=== PATIENT | female | born 1975 | race American Indian/Alaskan Native ===

== ENCOUNTER 2022-03-18 09:41 | Emergency (ER) | payer OTHER ==
[2022-03-18] MEDS ORDERED: HYDROcodone/ACETAMINOPHEN 5-325 MG TAB PO ONE (10:42)
[2022-03-18] MEDS ORDERED: IBUPROFEN 800 MG TAB PO ONE (10:42)
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
[2022-03-18 10:49] VITALS: BP 120/80
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
== END 2022-03-18 13:45 | disposition home or self-care (01) ==
LOC: ED 09:41
DX: S10.91XA Abrasion of unspecified part of neck, initial encounter (principal); S60.512A Abrasion of left hand, initial encounter; R07.89 Other chest pain; Z79.899 Other long term (current) drug therapy; V87.7XXA Person injured in collision between other specified motor vehicles (traffic), initial encounter; Y93.89 Activity, other specified; Y92.488 Other paved roadways as the place of occurrence of the external cause; Y99.8 Other external cause status
CPT/HCPCS: 71250; 72125; 99284